=== PATIENT | female | born 1940 | race Two or more races ===

== ENCOUNTER 2025-03-19 08:03 | Inpatient (IN) | payer BC, MEDICARE ==
[~2025-03-19] VITALS: Ht 170.2 cm; Wt 22.7 kg
[2025-03-19] VITALS (45 sets, daily range): BP systolic 109–158; BP diastolic 53–121; PULSE 73–112; RESP 11–32; TEMP 36.2–36.6; O2SAT 90–100
[2025-03-19] MEDS: SODIUM CHLORIDE 0.9% (SEPSIS BOLUS) IV ONE (08:29)
[2025-03-19] MEDS: IPRATROPIUM BROMIDE (0.02%) 0.5MG/2.5ML NEB HHN SCH ×2 (08:32→16:15)
[2025-03-19] MEDS: ALBUTEROL (0.083%) 2.5MG/3ML NEB HHN SCH (08:33)
[2025-03-19 08:41] LABS: BASOPHILS % 1.1 % (0.0-2.0); EOSINOPHILS % 0.3 % (0.0-5.0); HEMATOCRIT. 33.0 % (36.0-48.0); HEMOGLOBIN. 10.4 g/dL (12.0-16.0); LYMPHOCYTES % 19.3 % (20.0-50.0); MEAN PLATELET VOLUME 9.5 fl (7.4-10.4); MONOCYTES % 4.0 % (2.0-8.0); NEUTROPHILS % 75.3 % (40.0-76.0); PLATELET 313 x1000/uL (130-400); RED BLOOD CELL COUNT 3.87 mill/uL (4.2-5.4); RED CELL DISTRIBUTION WIDTH 16.8 % (11.6-14.6)
[2025-03-19] MEDS: HYDRALAZINE 20MG/ML VIAL IV SCH (08:41)
[2025-03-19] MEDS: CEFTRIAXONE 1GM/50ML 50 ML IV SCH (08:41)
[2025-03-19] MEDS: METHYLPREDNISOLONE SOD SUCC 125MG/2ML (ACT-O-VIAL) IV SCH ×2 (08:41→14:22)
[2025-03-19 08:51] LABS: INR 1.9
[2025-03-19 08:55] LABS: CREATININE 3.6 mg/dL (0.6-1.0)
[2025-03-19 08:56] LABS: UREA NITROGEN BLOOD 42 mg/dL (9-23)
[2025-03-19 08:57] LABS: ASPARTATE AMINOTRANSFERASE 21 IU/L (<34)
[2025-03-19 08:58] LABS: BILIRUBIN DIRECT 0.1 mg/dL (<=3.0); BILIRUBIN TOTAL 0.3 mg/dL (0.1-1.0); PROTEIN TOTAL 6.8 g/dL (6.0-8.3)
[2025-03-19 09:03] LABS: TROPONIN I HIGH SENSITIVITY 106 ng/L (3.0-34)
[2025-03-19] MEDS: HYDROCODONE/ACETAMINOPHEN 5/325MG TABLET PO ONE (09:36)
[2025-03-19] MEDS: ASPIRIN 325MG EC TABLET PO SCH (09:36)
[2025-03-19] MEDS: ENOXAPARIN 60MG/0.6ML SYR SUBCUT SCH (09:37)
[2025-03-19] MEDS ORDERED: GUAIFENESIN 200MG/10ML SUGAR FREE UDC PO PRN (10:30)
[2025-03-19] MEDS ORDERED: ONDANSETRON HCL 4MG/2ML INJ IV PRN (10:30)
[2025-03-19] MEDS ORDERED: ACETAMINOPHEN 325MG TABLET PO PRN (10:30)
[2025-03-19] MEDS ORDERED: MAGNESIUM/ALUMINUM HYDROXIDE/SIMETHICONE 30ML UDC PO PRN (10:30)
[2025-03-19] MEDS ORDERED: DOCUSATE SODIUM 100MG CAPSULE PO PRN (10:30)
[2025-03-19] MEDS: ONDANSETRON HCL 4MG/2ML INJ IV SCH (10:35)
[2025-03-19] MEDS: NICARDIPINE 40MG/200ML PREMIX 200 ML IV PRN ×2 (10:35→15:37)
[2025-03-19] MEDS ORDERED: NALOXONE HCL 0.4MG/ML VIAL IV PRN (10:45)
[2025-03-19 11:05] LABS: BG BASE EXCESS -11.8 mmol/L (-2.0-3.0); BG CARBOXYHEMOGLOBIN 0.3 % (0.5-1.5); BG DEOXYHEMOGLOBIN 3.9 % (0.0-5.0); BG FLOW(L/min) 6.00 L/min; BG FRACTION INSPIRED OXYGEN 60; BG HCO3 ACT 18.4 mmol/L (21.0-28.0); BG METHEMOGLOBIN 0.3 % (0.5-1.5); BG OXYGEN SATURATION 96.1 % (94.0-98.0); BG OXYHEMOGLOBIN 95.5 % (94.0-98.0); BG PCO2 65.1 mmHg (32.0-45.0); BG PH 7.069 (7.350-7.450); BG PO2 112.1 mmHg (83.0-108.0); BG SAMPLE SITE RIGHT RADIAL; BG TOTAL HEMOGLOBIN 10.0 g/dL (12.0-16.0); BG VENT MODE MASK - HHN
[2025-03-19 11:39] LABS: PHOSPHORUS 3.3 mg/dL (2.5-4.9)
[2025-03-19] MEDS ORDERED: FUROSEMIDE 20MG/2ML VIAL IVP NR (12:00)
[2025-03-19 12:02] LABS: FOLIC ACID (FOLATE) SERUM > 20.00 ng/mL (>5.38)
[2025-03-19 12:03] LABS: VITAMIN B12 SERUM 273 pg/mL (211-911)
[2025-03-19] MEDS: DILTIAZEM HCL 5MG/ML 5ML VIAL IV SCH (12:19)
[2025-03-19] MEDS: FUROSEMIDE 40MG/4ML VIAL IVP SCH (12:19)
[2025-03-19] MEDS: IPRATROPIUM/ALBUTEROL 0.5-3(2.5)MG/3ML NEB NEB SCH (12:19)
[2025-03-19] MEDS: MORPHINE SULFATE 4 MG/ML INJ (FOR IV/IM USE) IV PRN (12:20)
[2025-03-19] MEDS: PANTOPRAZOLE SODIUM 40 MG/VIAL IV SCH (12:23)
[2025-03-19] MEDS: MAGNESIUM 4 G PREMIX 100 ML IV SCH (13:07)
[2025-03-19] MEDS: CEFEPIME 1 GM/50 ML IV SCH (13:07)
[2025-03-19 13:36] LABS: BG BASE EXCESS -9.3 mmol/L (-2.0-3.0); BG CARBOXYHEMOGLOBIN 0.1 % (0.5-1.5); BG DEOXYHEMOGLOBIN 3.8 % (0.0-5.0); BG FRACTION INSPIRED OXYGEN 35; BG HCO3 ACT 17.9 mmol/L (21.0-28.0); BG METHEMOGLOBIN 0.3 % (0.5-1.5); BG OXYGEN SATURATION 96.2 % (94.0-98.0); BG OXYHEMOGLOBIN 95.8 % (94.0-98.0); BG PCO2 44.1 mmHg (32.0-45.0); BG PH 7.226 (7.350-7.450); BG PO2 93.7 mmHg (83.0-108.0); BG SAMPLE SITE RIGHT BRACHIAL; BG TOTAL HEMOGLOBIN 10.5 g/dL (12.0-16.0); BG TOTAL RESPIRATORY RATE 25 b/min; BG VENT MODE MASK - BIPAP; BG VENT RATE 22.0 set
[2025-03-19] MEDS: ACETAMINOPHEN 325MG TABLET PO PRN (16:40)
[2025-03-19 16:44] LABS: TROPONIN I HIGH SENSITIVITY 217 ng/L (3.0-34)
[2025-03-19 17:21] LABS: HEPATITIS C AB REACTIVE (Pos) (Negative)
[2025-03-19] MEDS: MELATONIN 3MG TABLET PO SCH (17:50)
[2025-03-19 21:05] LABS: HEPATITIS A AB IGM NEGATIVE (Negative)
[2025-03-19 21:06] LABS: HEPATITIS B CORE AB IGM NEGATIVE (Negative); HEPATITIS C AB REACTIVE (Pos) (Negative)
[2025-03-19] MEDS ORDERED: DIPHENHYDRAMINE 50MG/ML VIAL IV PRN (22:15)
[2025-03-19] MEDS: DOXYCYCLINE 100MG/100ML 100 ML IV SCH (22:25)
[2025-03-19] MEDS: DIPHENHYDRAMINE 50MG/ML VIAL IV PRN (23:04)
[2025-03-19 23:09] LABS: TROPONIN I HIGH SENSITIVITY 377 ng/L (3.0-34)
[2025-03-20] VITALS (49 sets, daily range): BP systolic 118–171; BP diastolic 55–130; PULSE 83–107; RESP 11–29; TEMP 36.4–36.5; O2SAT 93–100
[2025-03-20] MEDS: HYDRALAZINE 20MG/ML VIAL IV PRN (02:14)
[2025-03-20 04:51] LABS: HEMATOCRIT. 28.9 % (36.0-48.0); HEMOGLOBIN. 9.2 g/dL (12.0-16.0); MEAN PLATELET VOLUME 9.7 fl (7.4-10.4); PLATELET 283 x1000/uL (130-400); RED BLOOD CELL COUNT 3.38 mill/uL (4.2-5.4); RED CELL DISTRIBUTION WIDTH 16.9 % (11.6-14.6)
[2025-03-20 05:01] LABS: INR 2.0
[2025-03-20 05:07] LABS: CREATININE 3.8 mg/dL (0.6-1.0); LDL CHOLESTEROL 41.0 mg/dL (5-100); TRIGLYCERIDE 114.0 mg/dL (0-150); UREA NITROGEN BLOOD 49.0 mg/dL (9-23)
[2025-03-20 05:10] LABS: T4 FREE 1.41 ng/dL (0.89-1.76)
[2025-03-20] MEDS: CLONIDINE 0.1MG TABLET PO PRN (06:51)
[2025-03-20] MEDS: DOXYCYCLINE 100MG/100ML 100 ML IV SCH (09:30)
[2025-03-20] MEDS: SODIUM BICARBONATE 8.4% 50MEQ/50ML SYR IV NR (09:41)
[2025-03-20] MEDS: LIDOCAINE 5% PATCH TOP SCH (09:42)
[2025-03-20] MEDS: ENOXAPARIN 60MG/0.6ML SYR SUBCUT SCH (09:50)
[2025-03-20] MEDS ORDERED: NICARDIPINE 50 MG in SODIUM CHLORIDE 0.9% 230 ML IV PRN (12:00)
[2025-03-20] MEDS ORDERED: WARF5TAB8 PO (12:24)
[2025-03-20] MEDS ORDERED: DOXY100C5 PO (12:24)
[2025-03-20] MEDS ORDERED: LABE100T9 PO (12:24)
[2025-03-20] MEDS ORDERED: HYDR25TA78 PO (12:24)
[2025-03-20] MEDS ORDERED: LEVO100T9 PO (12:24)
[2025-03-20] MEDS ORDERED: ATOR20TA65 PO (12:24)
[2025-03-20] MEDS ORDERED: METHYLPREDNISOLONE SOD SUCC 40MG/ML (ACT-O-VIAL) IV SCH (14:00)
[2025-03-20] MEDS ORDERED: CEFEPIME 1GM/50ML 50 ML IV SCH (14:00)
[2025-03-20 15:47] LABS: LYMPHOCYTES % MANUAL 5.0 % (20.0-60.0); NEUTROPHILS % MANUAL 95.0 % (45.0-75.0)
[2025-03-20 15:48] LABS: PLATELET ESTIMATE NORMAL
[2025-03-20] MEDS ORDERED: FUROSEMIDE 40MG/4ML VIAL IVP SCH (20:00)
== END 2025-03-20 13:30 | disposition left against medical advice (07) | DRG 871 ==
LOC: ER 08:03 → MICUSO 09:28 → EDBEDREQTM 09:30 → EDBEDREQ 09:30 → ENRESERV 09:52 → CANRESERV 09:52 → ENRESERV 10:02 → EDBEDREQSVC 10:05 → ENRESERV 10:25
PROVIDERS: ADMIT Internal Medicine; ATTEND Internal Medicine
PROC: 5A09357 Assistance with Respiratory Ventilation, Less than 24 Consecutive Hours, Continuous Positive Airway Pressure (ICD-10-PCS; principal; 2025-03-19)
PROC: 5A09357 Assistance with Respiratory Ventilation, Less than 24 Consecutive Hours, Continuous Positive Airway Pressure (ICD-10-PCS; 2025-03-20)
DX: A41.9 Sepsis, unspecified organism (principal); I21.A1 Myocardial infarction type 2; I50.43 Acute on chronic combined systolic (congestive) and diastolic (congestive) heart failure; J18.9 Pneumonia, unspecified organism; J96.22 Acute and chronic respiratory failure with hypercapnia; J96.01 Acute respiratory failure with hypoxia; N17.9 Acute kidney failure, unspecified; E87.20 Acidosis, unspecified; I16.1 Hypertensive emergency; J44.1 Chronic obstructive pulmonary disease with (acute) exacerbation; E87.0 Hyperosmolality and hypernatremia; K56.7 Ileus, unspecified; J90 Pleural effusion, not elsewhere classified; I13.0 Hypertensive heart and chronic kidney disease with heart failure and stage 1 through stage 4 chronic kidney disease, or unspecified chronic kidney disease; Z86.73 Personal history of transient ischemic attack (TIA), and cerebral infarction without residual deficits; N18.9 Chronic kidney disease, unspecified; D64.9 Anemia, unspecified; B19.20 Unspecified viral hepatitis C without hepatic coma; Z20.822 Contact with and (suspected) exposure to COVID-19; E78.00 Pure hypercholesterolemia, unspecified; E87.8 Other disorders of electrolyte and fluid balance, not elsewhere classified; F17.210 Nicotine dependence, cigarettes, uncomplicated; F41.9 Anxiety disorder, unspecified; K76.89 Other specified diseases of liver; Z55.6 Problems related to health literacy; Z79.01 Long term (current) use of anticoagulants; Z90.710 Acquired absence of both cervix and uterus; Z79.899 Other long term (current) drug therapy; E83.42 Hypomagnesemia
CPT/HCPCS: 36415; 36600; 71045; 71250; 74018; 74176; 76770; 80048; 80061; 80076; 80320; 82375; 82550; 82607; 82728; 82746; 82805; 83036; 83540; 83550; 83605; 83735; 83880; 84100; 84145; 84439; 84443; 84484; 85025; 85379; 86705; 86709; 87340; 87426; 93005; 93970; 94070; 94640; 94660; 94664; 99291; J0360; J0692; J0696; J1200; J1650; J1938; J2270; J2405; J2470; J2919; J3475; J3490; J7030; G0480